=== PATIENT | female | born 1990 | race Two or more races ===

== ENCOUNTER 2023-06-07 13:11 | Emergency (ER) | payer MEDICAID, OTHER ==
[~2023-06-07] VITALS: Ht 149.9 cm; Wt 56.6 kg
[2023-06-07 13:27] VITALS: BP 105/66; PULSE 94; RESP 18; O2SAT 97
[2023-06-07] MEDS ORDERED: CIPR0.3S67 OP (14:55)
[2023-06-07] MEDS ORDERED: AZIT-81 PO (14:55)
[2023-06-07] MEDS ORDERED: PROM1SOL4 PO (14:55)
== END 2023-06-07 15:10 | disposition home or self-care (01) ==
LOC: ER 13:11
DX: J03.90 Acute tonsillitis, unspecified (principal); H10.33 Unspecified acute conjunctivitis, bilateral